=== PATIENT | female | born 1985 | race Caucasian/White ===

== ENCOUNTER 2019-10-20 13:13 | Emergency (ER) | payer SELFPAY ==
--- NOTE | ~2019-10-20 | XR_ITS ---
EXAMINATION: XR ankle LT min 3V DATE: 10/20/2019 13:38 INDICATION: Left ankle pain TECHNIQUE: Anteroposterior, lateral, mortise, and additional oblique view of the ankle were obtained. COMPARISON: None. FINDINGS: There is lateral soft tissue swelling of the ankle. Tiny heterotopic ossifications are seen distal to the lateral malleolus. Bone alignment is normal. IMPRESSION: 1. Tiny heterotopic ossifications adjacent to the lateral malleolus with adjacent soft tissue swellin g, concerning for avulsion injury of the lateral malleolus. Reviewed, dictated and finalized at location A. IMPRESSION: 1. Tiny heterotopic ossifications adjacent to the lateral malleolus with adjace nt soft tissue swelling, concerning for avulsion injury of the lateral mallefarzaneh vee
[2019-10-20 13:28] VITALS: BP 117/68; PULSE 85; RESP 18; TEMP 37.4; O2SAT 99
--- NOTE | 2019-10-20 13:51 | ED.LOWEXIN ---
HPI - Extremity Injury (Lower) General Chief Complaint: Extremity Injury, Lower Stated Complaint: Lefr foot Pain Time Seen by Provider: 10/20/19 13:47 Source: patient and RN notes reviewed Mode of arrival: ambulatory Limitations: no limitations History of Present Illness HPI Narrative: Patient presents today complaining of left ankle injury. States she twisted her ankle in a hole in the ground 1 hour prior to arrival. She has been ambulatory with increased pain. Denies numbness or tingling in the leg or foot. Currently rates her pain 6/10, which increases with weightbearing. She has tried no [id number] interventions prior to arrival. complaint: ankle injury Related Data Home Medications Medication Instructions Recorded Confirmed No Home Medications 10/20/19 10/20/19 Allergies Allergy/AdvReac Type Severity Reaction Status Date / Time No Known Allergies Allergy Mild Unverified 08/06/11 11:18 Review of Systems Review of Systems: Narrative: CONSTITUTIONAL: Denies body aches, fever, chills, or sweats. EYES: Denies visual changes, redness, or discharge. ENT: Denies rhinorrhea, congestion, sore throat, or otalgia. CARDIOVASCULAR: Denies chest pain, palpitations, or edema. RESPIRATORY: Denies cough or dyspnea. GASTROINTESTINAL: Denies abdominal pain, nausea, vomiting, or diarrhea. GENITOURINARY: Denies dysuria or hematuria. SKIN: Denies rash, itching, or wounds. MUSCULOSKELETAL: Denies back pain, or myalgia. + Left ankle injury NEUROLOGIC: Denies headache, numbness, tingling, or weakness. PSYCH: Denies depression or anxiety. PMFSH Comments At time of signature, I have reviewed and agree with nursing past medical, surgical, social and family history unless otherwise noted. Please see nursing chart for further information. There is no relevant family history pertinent to the presenting complaint Exam Narrative: Exam Narrative: GENERAL: Well-appearing, well-nourished, and in no acute distress. HEAD: Normocephalic, atraumatic. EYES: EOMI. No redness or drainage. Conjunctivae normal. ENT: Mucous membranes pink and moist. NECK: Normal AROM. CHEST: No respiratory distress. EXTREMITIES: Left ankle: Nontender medial malleolus without edema. Moderately swollen lateral malleolus with tenderness. Ecchymosis just distal to the lateral malleolus. Distal sensation intact. Capillary refill normal. Pedal pulse normal. Almost full range of motion of the ankle with increased pain. SKIN: Warm, dry, no rash. Capillary refill normal. Normal skin turgor. NEURO: No focal deficits. Alert and oriented x3. Gait steady. PSYCH: Normal affect. No signs of depression or anxiety. Course Vital Signs Vital signs: Vital Signs Temperature 99.3 F 10/20/19 13:28 Pulse Rate 85 10/20/19 13:28 Respiratory Rate 18 10/20/19 13:28 Blood Pressure 117/68 10/20/19 13:28 Pulse Oximetry 99 10/20/19 13:28 Temperature 99.3 F 10/20/19 13:28 Pulse Rate 85 10/20/19 13:28 Respiratory Rate 18 10/20/19 13:28 Blood Pressure 117/68 10/20/19 13:28 Pulse Oximetry 99 10/20/19 13:28 Reviewed Procedures Orthopedic Splinting/Casting Injury #1: Splinting/Casting Date: 10/20/19 Splinting/Casting Time: 13:57 Side: left Lower Extremity Injury Location: ankle OCL: short leg Pre-Procedure Neuro Vascular Exam: normal Post-Procedure Neuro Vascular Exam: normal Other Orthopedic Equipment: crutches Additional Comments: Placed by RN and tech MDM - Extremity Injury (Lower) Differential Diagnosis Differential diagnosis: Likely ankle sprain and strain, ankle fracture and other (Foot fracture, foot sprain) Imaging Data Radiologist's impression: ITS Impressions Ankle X-Ray 10/20/19 13:44 IMPRESSION: 1. Tiny heterotopic ossifications adjacent to the lateral malleolus with adjacent soft tissue swelling, concerning for avulsion injury of the lateral malleolus.
== END 2019-10-20 14:25 | disposition home or self-care (01) ==
PROVIDERS: Emergency Provider Nurse Practitioner
DX: S82.62XA Displaced fracture of lateral malleolus of left fibula, initial encounter for closed fracture (principal); W17.2XXA Fall into hole, initial encounter
CPT/HCPCS: 29515; 73610; 99214; G0463

== ENCOUNTER 2021-06-01 12:13 | Emergency (ER) | payer BC, SELFPAY ==
[2021-06-01 12:22] VITALS: BP 149/92; PULSE 85; RESP 16; TEMP 37.2; O2SAT 98
--- NOTE | 2021-06-01 12:25 | ED.DENTAL ---
HPI - Dental/Oral General Chief complaint: Dental/Oral Stated complaint: Tooth Pain Time Seen by Provider: 06/01/21 12:30 Source: patient, RN notes reviewed and old records reviewed Mode of arrival: ambulatory Limitations: no limitations History of Present Illness HPI Narrative: 35-year-old female presents to the [facility] with complaints of dental pain and swelling since yesterday. Pain and swelling to the lower dental gums. Multiple teeth are decayed below the gumline not warm missing. Has a history of multiple dental abscesses, trying to find a dental provider to take her insurance. No facial swelling, signs of infection. Has not seen a dentist in many years. Had taken Naprosyn this morning MD Complaint: tooth pain Related Data Allergies Allergy/AdvReac Type Severity Reaction Status Date / Time No Known Allergies Allergy Mild Verified 06/01/21 12:28 Review of Systems Review of Systems: All systems reviewed & are unremarkable except as noted in HPI and below Constitutional: Constitutional: Reports no additional constitutional complaints, Denies chills and Denies fever(s) Eyes: Eyes: Reports no additional eye complaints ENT: Reports as per HPI Comments: Dental pain lower front Cardiovascular: Cardiovascular: Reports no additional cardiovascular complaints, Denies chest pain and Denies dyspnea Respiratory: Respiratory: Reports no additional respiratory complaints, Denies cough and Denies dyspnea Musculoskeletal: Musculoskeletal: Reports no additional musculoskeletal complaints Integumentary/Breasts: Skin/Breast: Reports system reviewed and no additional complaints, except as docu Neurologic: Reports system reviewed and no additional complaints, except as documented Psychiatric: Psychiatric: Reports no additional psychiatric complaints Allergic/Immunologic: Allergic/Immunologic: Reports no additional allergic/immunologic complaints [facility] Family History Family History Mother Diabetes mellitus Social History Social History Smoking status: Current every day smoker Gender identity (if verbalized by the patient): Female Comments At the time of my signature, I reviewed and agree with the nursing past medical, surgical, social, and family history. There is no relevant family history pertinent to the patient complaint. Exam Const: General: no acute distress, alert and ill appearing chronically Nutritional Appearance: well nourished and thin Orientation/consciousness: patient oriented x3 Limitations: no limitations HENMT: Head: normal to inspection Ears: external ears normal, TM's normal bilaterally and EAC's normal General nose exam: Normal external nose present and Normal nasal mucous membranes and turbinates present Face and sinus: normal facial exam Mouth: Yes Normal oral and palatal mucosa present Teeth and gingiva: gingiva abnormal edematous, diffusely erythematous (Anterior lower gums), tender, receding and other (Multiple missing teeth, teeth that are in place have receding gingiva) and poor dentition Throat: posterior oropharynx normal, tonsils normal and uvula midline Eyes: Conjunctivae: conjunctivae normal Pupils: Equal, round and reactive pupils present Neck: Neck: normal visual inspection, no lymphadenopathy and no meningeal signs Chest: Chest palpation & inspection: normal inspection of the chest Resp: Effort & Inspection: normal respiratory effort Auscultation: clear to auscultation bilaterally Cardio: Rate: regular rate Rhythm: regular rhythm Skin: General skin exam: normal color Rashes: no rashes Wounds: no wounds Neuro: General: patient oriented x3, moves all extremities, no meningeal signs and no focal motor deficits Cranial nerves: Yes Equal, round and reactive pupils present Speech: normal speech Gait exam (Neuro): Normal gait present Extrem: General: normal to ins
== END 2021-06-01 12:38 | disposition home or self-care (01) ==
PROVIDERS: Emergency Provider Nurse Practitioner
DX: K04.7 Periapical abscess without sinus (principal); F17.200 Nicotine dependence, unspecified, uncomplicated
CPT/HCPCS: 99213; G0463

== ENCOUNTER 2021-08-01 11:30 | Emergency (ER) | payer BC, SELFPAY ==
[2021-08-01 11:56] VITALS: BP 140/94; PULSE 83; RESP 16; TEMP 36.7; O2SAT 99
--- NOTE | 2021-08-01 12:27 | ED.URI ---
HPI - URI/Sore Throat General Chief Complaint: Upper Respiratory Infection Stated Complaint: uri Time Seen by Provider: 08/01/21 12:27 Source: patient Mode of arrival: ambulatory Limitations: no limitations History of Present Illness HPI Narrative: 35-year-old female presents with complaint of sinus congestion, nasal congestion, postnasal drainage, sore throat, sinus pressure for 3 weeks. Reports that symptoms are getting worse. Is taking an [id number]-zvf-[id number] cold and flu medication without relief. States now she is blowing green drainage from her nose. Afebrile. All systems reviewed and negative except as noted above. Related Data Allergies Allergy/AdvReac Type Severity Reaction Status Date / Time No Known Allergies Allergy Mild Verified 08/01/21 12:28 Review of Systems Review of Systems: CONSTITUTIONAL: Denies fever, chills, or sweats. EYES: Denies visual changes, redness, or discharge. ENT: Reports rhinorrhea, congestion, sore throat, sinus pressure. Denies otalgia. CARDIOVASCULAR: Denies chest pain, palpitations, or edema. RESPIRATORY: Denies cough or dyspnea. GASTROINTESTINAL: Denies abdominal pain, nausea, vomiting, or diarrhea. GENITOURINARY: Denies dysuria or hematuria. SKIN: Denies rash or itching. MUSCULOSKELETAL: Denies back pain, joint pain, or myalgia. NEUROLOGIC: Denies headache, numbness, or weakness. PSYCHIATRIC: Denies anxiety or depression. All other systems reviewed are negative, except as documented in HPI. PMFSH Family History Family History Mother Diabetes mellitus Social History Social History Smoking status: Current every day smoker Gender identity (if verbalized by the patient): Female Comments At time of signature, agree with nursing past medical, surgical, social and family history. There is no relevant family history pertinent to the presenting complaint. Exam Narrative: GENERAL: This is a well-nourished, well-developed patient, in no apparent distress. HEAD: normocephalic, atraumatic. EYES: PERRL. Sclera clear/white. Vision is grossly intact. EARS: External ears normal, auditory canals clear and without drainage, fluid to bilateral TMs, no erythema or perforation. NOSE: External nose normal with clear nasal drainage, erythema and swelling to nares. Bilateral maxillary sinus tenderness. THROAT: Mucous membranes moist, posterior pharynx erythematous with clear postnasal drainage. NECK: Neck supple, non-tender without lymphadenopathy, masses or thyromegaly. CARDIOVASCULAR: Regular rate and rhythm without murmurs, gallops, or rubs. RESPIRATORY: Clear to auscultation. Breath sounds equal bilaterally. No wheezes, rales, or rhonchi. SKIN: warm, Dry, intact with no suspicious lesions or rash, good texture and turgor. NEURO: awake, alert, and oriented to person, place and time. There were no obvious focal neurologic abnormalities. EXTREMITIES: Normal range of motion to all extremities. Course Course Level of Care: Express Care Visit Vital Signs Vital signs: Vital Signs Temperature 36.7 C 08/01/21 11:56 Pulse Rate 83 08/01/21 11:56 Respiratory Rate 16 08/01/21 11:56 Blood Pressure 140/94 H 08/01/21 11:56 Pulse Oximetry 99 08/01/21 11:56 Oxygen Delivery Room Air 08/01/21 11:56 Temperature 36.7 C 08/01/21 11:56 Pulse Rate 83 08/01/21 11:56 Respiratory Rate 16 08/01/21 11:56 Blood Pressure 140/94 H 08/01/21 11:56 Pulse Oximetry 99 08/01/21 11:56 Oxygen Delivery Room Air 08/01/21 11:56 Reviewed MDM - URI/Sore Throat MDM Narrative Medical decision making narrative: Patient is aware of diagnosis, understands and agrees to treatment plan. Anticipatory guidance given. Patient agrees to follow-up as directed and is aware of reasons to seek care at the emergency department. Portions of this record may have been created with voice steve
== END 2021-08-01 12:40 | disposition home or self-care (01) ==
PROVIDERS: Emergency Provider Nurse Practitioner Family
DX: J01.90 Acute sinusitis, unspecified (principal); F17.200 Nicotine dependence, unspecified, uncomplicated; M19.90 Unspecified osteoarthritis, unspecified site
CPT/HCPCS: 99213; G0463

== ENCOUNTER 2021-12-03 13:17 | Emergency (ER) | payer OTHER, SELFPAY ==
[2021-12-03 13:34] VITALS: BP 148/104; PULSE 120; RESP 18; TEMP 38.4; O2SAT 100
--- NOTE | 2021-12-03 14:03 | ED.GENADULT ---
HPI - General Adult General Chief complaint: Dental/Oral Stated complaint: UTI/ Body Aches Time Seen by Provider: 12/03/21 14:03 Source: patient, RN notes reviewed and old records reviewed Mode of arrival: ambulatory Limitations: no limitations History of Present Illness HPI narrative: 36-year-old female presents to the [facility] with complaints of fever, body aches, ear pain, headache and felt feverish since yesterday. No treatment prior to arrival. Denies any abdominal pain or chest pain. Denies any urinary symptoms. Patient with vague symptoms of body aches. Denies vomiting. Febrile tachycardic while here. Discussed with patient going to the emergency room which she declined. States I just want an antibiotic. Related Data Allergies Allergy/AdvReac Type Severity Reaction Status Date / Time No Known Allergies Allergy Mild Verified 12/03/21 13:36 Review of Systems Review of Systems: All systems reviewed & are unremarkable except as noted in HPI and below Constitutional: Constitutional: Reports as per HPI, Reports body ache(s), Reports chills, Reports fatigue and Denies fever(s) Eyes: Eyes: Reports no additional eye complaints ENT: Reports as per HPI and Reports dental pain Cardiovascular: Cardiovascular: Reports no additional cardiovascular complaints Respiratory: Respiratory: Reports no additional respiratory complaints Gastrointestinal: Gastrointestinal: Reports no additional gastrointestinal complaints Musculoskeletal: Musculoskeletal: Reports no additional musculoskeletal complaints Integumentary/Breasts: Skin/Breast: Reports system reviewed and no additional complaints, except as docu Neurologic: Reports system reviewed and no additional complaints, except as documented Psychiatric: Psychiatric: Reports no additional psychiatric complaints Allergic/Immunologic: Allergic/Immunologic: Reports no additional allergic/immunologic complaints [facility] Family History Family History Mother Diabetes mellitus Social History Social History Smoking status: Current every day smoker Gender identity (if verbalized by the patient): Female Comments At the time of my signature, I reviewed and agree with the nursing past medical, surgical, social, and family history. There is no relevant family history pertinent to the patient complaint. Exam Const: General: no acute distress, alert and ill appearing chronically Nutritional Appearance: thin Orientation/consciousness: patient oriented x3 Limitations: no limitations HENMT: Head: normal to inspection Ears: external ears normal, TM's normal bilaterally and EAC's normal Face/Nose/Sinus: Normal external nose present and Normal nares present Face and sinus: normal facial exam Mouth: Yes Normal oral and palatal mucosa present Teeth and gingiva: gingiva abnormal diffusely erythematous and poor dentition Eyes: General: appearance normal, both eyes and all related structures Pupils: Equal, round and reactive pupils present Neck: Neck: normal visual inspection, no lymphadenopathy and no meningeal signs Chest: Chest palpation & inspection: normal inspection of the chest Resp: Effort & Inspection: normal respiratory effort and no use of accessory muscles Auscultation: clear to auscultation bilaterally, no crackles, no rales, no rhonchi and no wheezes Cardio: Rate: regular rate Rhythm: regular rhythm GI: GI Palp: Yes Soft to palpation and No Tenderness to palpation present (GI) Skin: General skin exam: normal color Rashes: no rashes Wounds: no wounds Neuro: General: patient oriented x3, moves all extremities, no meningeal signs and no focal motor deficits Cranial nerves: Yes Equal, round and reactive pupils present Speech: normal speech Gait exam (Neuro): Normal gait present Extrem: General: normal to inspection, full ROM and capillary refill normal Psyc
[2021-12-03 14:15] VITALS: TEMP 38.4
[2021-12-03] MEDS: ACETAMINOPHEN 500 MG TABLET 1000 MG PO (14:15)
[2021-12-03 15:01] VITALS: PULSE 106; TEMP 38.1
== END 2021-12-03 15:01 | disposition home or self-care (01) ==
PROVIDERS: Emergency Provider Nurse Practitioner
DX: N39.0 Urinary tract infection, site not specified (principal); Z20.822 Contact with and (suspected) exposure to COVID-19; F17.200 Nicotine dependence, unspecified, uncomplicated
CPT/HCPCS: 81003; 87086; 87088; 87426; 87804; 99213; A9270; C9803; G0463

== ENCOUNTER 2024-04-12 17:42 | Emergency (ER) | payer SELFPAY ==
--- NOTE | ~2024-04-12 | XR_ITS ---
HISTORY: pain X 3 WKS NO INJ COMPARISON: None TECHNIQUE: 3 views of the left wrist were performed. FINDINGS: No acute fracture is identified. The carpal arcs are intact. Mild radiocarpal joint space narrowing with sclerosis of the distal radius is present. The remaining visualized joint spaces are otherwise preserved. Degenerative disease is identified at the first carpal metacarpal joint space. Periarticular osteopenia is noted Bone mineralization is age-appropriate No significant soft tissue swelling is noted. No radiopaque foreign body is identified. IMPRESSION: Findings suggesting mild osteoarthritis, without acute fracture or dislocation. Reviewed, dictated and finalized at location A. IFIER OPERATOR
--- NOTE | ~2024-04-12 | XR_ITS ---
HISTORY: pain X 3 WKS NO INJ COMPARISON: None TECHNIQUE: 2 views of the left forearm were performed. FINDINGS: No acute or subacute fracture. Joint spaces are preserved and alignment is maintained. Soft tissues are unremarkable without foreign body or significant calcification. Age-appropriate mineralization. IMPRESSION: No acute fracture or dislocation Reviewed, dictated and finalized at location A. [employer]
--- OUTSIDE RECORDS SUMMARY | 2024-04-12 17:43 | XMS_ITS | Patient Health Summary ---
Author Organization [facility] Address [address] [place] [address] Care Team Providers Care Business Writer Name Role Phone Unavailable Primary Care Provider Unavailabl e Note from [facility],non-owned Affiliates and Associated Physician Practices is amultiple site organization consisting of ambulatory clinics and hospital sitesin [place], [place], [place] and [place]. This disclosure is being madepursuant to the Care Everywhere program and may not contain all information available regarding this patient. Last updated 17.[facility] [email or web address] Social History Tobacco Use Types Packs/Day Years Used Date Smoking Tobacco: Never Assessed Sex and Gender Information Value Date Recorded Sex Assigned at Not on file Gender Identity Not on file Sexual Orientation Not on file Procedures * GROSS + MICRO EXAM(Performed 06/06/2004) Results * GROSS + MICRO EXAM (06/06/2004 6:58 PM CDT) Result CASE NUMBER [id number] Comment: ORDERING PHYSICIAN MICHELE LIZ SPECIMEN TYPE Placenta Date 06/08/2004 Physician Cruz Liz Gross Description The specimen consists of a discoid placenta weighing 450 grams, and measures 15 cm in maximum transverse dimension and 2 cm in thickness. A small stump of umbilical cord is attached slightly eccentric, about 3 cm from the one margin of the placenta. It measures 13 cm in length and 7 mm in transverse dimension. The membranes are thin and translucent. The surface has prominent blood vessels. The cut surface of the umbilical cord has three prominent blood vessels. The maternal surface is congested pinkish cotyledons with a few blood clots attached. Two small yellowish lobular areas are noted. The cut surface shows a hematoma. Sections from the umbilical cord and membranes are submitted in block A, sections from the surface are submitted in B, and sections from the maternal surface are submitted in C. RN sorto Microscopic Exam The chorioamniotic membrane show no evidence of inflammation or meconium. The umbilical cord contains three vascular channels and shows no evidence of funisitis or thrombosis. The chorionic villi are very small, some of which contain only one vessel with little surrounding cytoplasm and show increased numbers of syncytial knots. Infarction with ghost outlines of chorionic villi is noted. There is no evidence of villitis or acute atherosis. An intervillous thrombus is noted. GM/na Diagnosis I. Placenta -- Third trimester placenta, 450 grams -- Features of accelerated maturation -- Two infarcts identified -- Intervillous thrombus -- Three vessel umbilical cord with no pathologic changes -- Chorioamniotic membranes with no pathologic changes GM/na Commissary Worker na Pathologist Tammy Reardon M.D. [place]. 06/09/2004 1258 <1> CPT code 46517 MISCELLANEOUS SAMPLES / Unknown 06/06/2004 6:58 PM CDT 06/08/2004 7:14 AM CDT Historical Provider LAB - PATHOLOGY/C YTOLOGY ORDERABLES
--- OUTSIDE RECORDS SUMMARY | 2024-04-12 17:43 | XMS_ITS | Clinical Summary ---
Author Organization [email or web address] Address [address] [place] [address] Care Team Providers Care Motor Vehicle License Clerk Name Role Phone Unavailable Primary Care Provider Unavailabl e Source Comments [email or web address],non-owned Affiliates and Associated Physician Practices is amultiple site organization consisting of ambulatory clinics and hospital sitesin [place], [place], [place] and [place]. This disclosure is being madepursuant to the Care Everywhere program and may not contain all information available regarding this patient. Last updated 17.[email or web address] Social History Tobacco Use Types Packs/Day Years Used Date Smoking Tobacco: Never Assessed Sex and Gender Information Value Date Recorded Sex Assigned at Not on file Gender Identity Not on file Sexual Orientation Not on file Plan of Treatment Health Maintenance Due Date Last Done Comments PAP SMEAR 1986 HIV SCREENING 2001 HEPATITIS C SCREENING 10/18/2004 DTAP/TDAP/TD VACCINES (1 - Tdap) 2005 HEPATITIS B VACCINE (1 of 3 - 19+ 3-dose series) 2005 COVID-19 VACCINE ( - 2023-2 5 season) 2023 INFLUENZA VACCINE (#1) 2023 DEPRESSION SCREENING 02/29/2024 ZOSTER VACCINE (1 of 2) 2036 HIB VACCINE Aged Out No longer eligi ble based on patient's age to complete this topic HPV VACCINE Aged Out No longer eligi ble based on patient's age to complete this topic MENINGOCOCCAL (Group B) VACCINE Aged Out No longer eligible based on patient's age to complete this topic MENINGOCOCCAL VACCINE Aged Out No maura valeriy eligible based on patient's age to complete this topic PNEUMOCOCCAL VACCINE Aged Out No long er eligible based on patient's age to complete this topic
--- OUTSIDE RECORDS SUMMARY | 2024-04-12 17:43 | XMS_ITS | Referral Summary ---
Author Organization [facility] Address [address] [place] [address] Care Team Providers Care Clinic Administrator Name Role Phone Unavailable Primary Care Provider Unavailabl e Source Comments [facility],non-owned Affiliates and Associated Physician Practices is amultiple site organization consisting of ambulatory clinics and hospital sitesin [place], [place], [place] and [place]. This disclosure is being madepursuant to the Care Everywhere program and may not contain all information available regarding this patient. Last updated 17.[facility] Social History Tobacco Use Types Packs/Day Years Used Date Smoking Tobacco: Never Assessed Sex and Gender Information Value Date Recorded Sex Assigned at Not on file Gender Identity Not on file Sexual Orientation Not on file Plan of Treatment Not on file
--- OUTSIDE RECORDS SUMMARY | 2024-04-12 17:43 | XMS_ITS | Continuity of Care Document ---
Author Organization [facility] Address [address] [place] [address] [address] [place] [address] Phone Care Team Providers Care Hardware Engineering Manager Name Role Phone Will BROWN, Rosaline Unavailable Unavailable Advance Directives Directive Yes / No Effective Date File Name No Information Encounters Encounter Description Practice Location Reason(s) For Visit Diagnoses Date Provider Providers Copied on Encounter [facility], [address] [place], [place] [address], [place], [place], [id number], [place] tel:[phone] [facility] No Information 4 Will Waggoner. [address] [place] [address] [address], [place], [place], [id number] , [place]. tel:[phone] Family History Family Member Type Diagnosis Age At Onset No Information Payers Payer name Insurance type Covered alliance party ID Authoriza tion(s) No Information Social History Type Description Quantity Date Captured Comments Sex Female Smoking Status No Information Chief Complaint And Reason For Visit No Information Reason For Referral Reason For Referral No Information History Of Present Illness Encounter Date Complaint History Of Prese nt Illness No Information Functional Status Date Functional Assessmen t No Information Instructions Date Instruction Additional Infor mation No Information Assessments Type Assessment Date No Information Patient Care Teams Name Effective Dates (start - stop) Status Members No Information
[2024-04-12 17:53] VITALS: BP 168/105; PULSE 94; RESP 18; TEMP 36.4; O2SAT 100
--- NOTE | 2024-04-12 18:34 | ED_ITS ---
HPI - General Adult General Chief complaint: Extremity Injury, Upper <Danika Zhou June, BACTERIOLOGY TEACHER - Last Filed: 04/12/24 18:38> Stated complaint: L ARM INJURY <Danika Zhou June, BACTERIOLOGY TEACHER - Last Filed: 04/12/24 18:38> Time Seen by Provider: 04/12/24 18:34 <Danika Zhou June, BACTERIOLOGY TEACHER - Last Filed: 04/12/24 18:38> Focused HPI: Lubna Beckham is a 38 y/o female who presents today with complaints of having pain to her left forearm for two weeks. She states that she does alot of repetitive movements at work and its causing her more pain. She denies any known trauma or injury + swelling to forearm / Pulses intact GENERAL: well-nourished, and in no acute distress. HEAD: Normocephalic, atraumatic. CHEST: Clear to auscultation. ?No respiratory distress. HEART: Regular rate and rhythm.? NEURO: ?Alert and oriented x3. Patient screened in triage and initial orders placed.? ?Additional care and disposition to be based upon?diagnostic testing and treatment. <Danika Zhou June,N - Last Filed: 04/12/24 18:38> History of Present Illness HPI narrative: Agree with the HPI above. Patient has tried lypv-bjp-rkuwuxz medications as well as a brace she bought online without any significantly for symptoms. Has had similar events in her right forearm but predominantly in her left forearm is what is bothering her today. Thinks is from the repetitive motions and activity at work. <Aldo Banda MD - Last Filed: 04/12/24 20:38> Related Data Allergies/adverse reactions: Allergies Allergy/AdvReac Type Severity Reaction Status Date / Time No Known Allergies Allergy Mild Verified 04/12/24 17:42 <Danika Zhou June, BACTERIOLOGY TEACHER - Last Filed: 04/12/24 18:38> Review of Systems Review of Systems: As reviewed above in HPI <Aldo Banda MD - Last Filed: 04/12/24 20:38> PMFSH Family History Family History: Family History Mother Diabetes mellitus <Danika Zhou June, BACTERIOLOGY TEACHER - Last Filed: 04/12/24 18:38> Social History Social History: Social History Smoking status: Current every day smoker Living arrangements: with family Occupation/Education: unemployed Gender identity (if verbalized by the patient): Female <Danika Yi, BACTERIOLOGY TEACHER - Last Filed: 04/12/24 18:38> Exam Narrative: GENERAL: [Well-appearing, well-nourished, and in no acute distress.] HEAD: [Normocephalic, atraumatic.] EYES: [PERRLA and EOMI.] ENT: Nares clear, no rhinorrhea or epistaxis. Mucous membranes moist. NECK: Supple. CHEST: [Clear to auscultation. No respiratory distress.] HEART: [Regular rate and rhythm]. No murmur heard. 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 No tenderness over the bony prominences. No discoloration over the skin, no swelling or any tenderness proximal to the forearms. Seems to be symmetric in both arms the patient states her left side is hurting SKIN: Warm, dry, no rash. NEURO: [No focal deficits]. Alert and oriented [x3.] PSYCH: [Normal mood and affect.] <Aldo Banda MD - Last Filed: 04/12/24 20:38> Course Vital Signs Vital signs: Vital Signs Temperature 36.4 C 04/12/24 17:53 Pulse Rate 94 04/12/24 17:53 Respiratory Rate 18 04/12/24 17:53 Blood Pressure 168/105 H 04/12/24 17:53 Pulse Oximetry 100 04/12/24 17:53 Oxygen Delivery Room Air 04/12/24 17:53 Temperature 36.4 C 04/12/24 17:53 Pulse Rate 94 04/12/24 17:53 Respiratory Rate 18 04/12/24 17:53 Blood Pressure 168/105 H 02/13/25 17:53 Pulse Oximetry 100 04/12/24 17:53 Oxygen Delivery Room Air 04/12/24 17:53 <Danika Yi APRN - Last Filed: 04/12/24 18:38> Vital Signs Temperature 36.4 C 04/12/24 17:53 Pulse Rate 94 04/12/24 17:53 Respiratory Rate 18 04/12/24 17:53 Blood Pressure 168/105 H 04/12/24 17:53 Pulse Oximetry 100 04/12/24 17:53 Oxygen Delivery Room Air 04/12/24 17:53 Temperature 36.4 C 04/12/24 17:53 Pulse Rate 94 04/12/24 17:53 Respiratory Rate 18 04/12/24 17:53 Blood Pressure 168/105 H 04/12/24 17:53 Pulse Oximetry 100 04/12/24 17:53 Oxygen Delivery Room Air 04/12/24 17:53 <Aldo Banda MD - Last Filed: 04/12/24 20:38> Medical Decision Making MDM Narrative Medical decision making narrative: 38-year-old female presenting to the emergency department for left forearm pain. 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 Seems to be symmetric in both arms but her left side is was bothering her today. Has tried Augustine wraps ihsq-bbs-fnnsetv meds without control. No elbow pain or tenderness, no symptoms in the hand. 2+ pulses. Patient likely has pronator syndrome versus tennis elbow based on the symptomatology. Low suspicion acute bony abnormality or any compartment pressure elevations based on the clinical exam findings and history. X-rays were obtained of the left wrist and forearm as well as providing her ibuprofen and Tylenol. X-rays show some mild arthritis but no acute osseous process otherwise. Patient will be safe for discharge home with diagnosis of pronator syndrome instructed follow-up with regular doctor. Provider short course of steroids for inflammation control in addition to her current regimen. Encouraged compression and brace for comfort and to limit activities at work for which a work note was provided. <Aldo Banda MD - Last Filed: 04/12/24 20:38> Medical Records Medical records reviewed: Yes I reviewed the external patient's medical records. <Aldo Banda MD - Last Filed: 04/12/24 20:38> Vital Signs Vital Signs: Vital Signs Temperature 36.4 C 04/12/24 17:53 Pulse Rate 94 04/12/24 17:53 Respiratory Rate 18 04/12/24 17:53 Blood Pressure 168/105 H 04/12/24 17:53 Pulse Oximetry 100 04/12/24 17:53 Oxygen Delivery Room Air 04/12/24 17:53 Temperature 36.4 C 04/12/24 17:53 Pulse Rate 94 04/12/24 17:53 Respiratory Rate 18 04/12/24 17:53 Blood Pressure 168/105 H 04/12/24 17:53 Pulse Oximetry 100 04/12/24 17:53 Oxygen Delivery Room Air 04/12/24 17:53 <Danika Yi APRN - Last Filed: 04/12/24 18:38> Vital Signs Temperature 36.4 C 04/12/24 17:53 Pulse Rate 94 04/12/24 17:53 Respiratory Rate 18 04/12/24 17:53 Blood Pressure 168/105 H 04/12/24 17:53 Pulse Oximetry 100 04/12/24 17:53 Oxygen Delivery Room Air 04/12/24 17:53 Temperature 36.4 C 04/12/24 17:53 Pulse Rate 94 04/12/24 17:53 Respiratory Rate 18 04/12/24 17:53 Blood Pressure 168/105 H 04/12/24 17:53 Pulse Oximetry 100 04/12/24 17:53 Oxygen Delivery Room Air 04/12/24 17:53 <Aldo Banda MD - Last Filed: 04/12/24 20:38> Imaging Data Attestation: I personally reviewed and interpreted this imaging study as follows: <Aldo Banda MD - Last Filed: 04/12/24 20:38> My impression: Impressions Forearm X-Ray 04/12/24 19:10 IMPRESSION: No acute fracture or dislocation Wrist X-Ray 04/12/24 19:16 IMPRESSION: Findings suggesting mild osteoarthritis, without acute fracture or dislocation. <Aldo Banda MD - Last Filed: 04/12/24 20:38> Discharge Plan Discharge Clinical Impression: Pronator syndrome of left upper extremity, Forearm pain, Repetitive motion disorder of left forearm <Danika Zhou June, - Last Filed: 04/12/24 18:38> Patient Disposition: Home, Self-Care <Danika Zhou June, - Last Filed: 04/12/24 18:38> Condition: Stable <Danika Zhou June, - Last Filed: 04/12/24 18:38> Instructions: Antibiotic Form <Danika Zhou June, Filed: 04/12/24 18:38> Additional Instructions: Your symptoms are very consistent with pronator syndrome versus tennis elbow. We will send you home with a short course of steroids as you have already tried ycrf-fvm-hmnhnra regimen without any significant relief. Limit the activities that are causing her symptoms with repetitive movement of your forearm and rotation of her wrist obtain a brace over the Internet or your local pharmacy. Follow-up with regular doctor. <Danika Zhou June, - Last Filed: 04/12/24 18:38> Patient Language: Cymraes <Danika Zhou June, - Last Filed: 04/12/24 18:38> Prescriptions: New methylprednisolone [Medrol (Brigido)] 4 mg tablets,dose pack See Rx Instructions .ROUTE .COMPLEX Qty: 21 0RF Rx Instructions: orally per package directions No Action amoxicillin-pot clavulanate 875-125 mg tablet 1 tablet PO Q12H Qty: 20 0RF <Danika CruzCurtis June, - Last Filed: 04/12/24 18:38> Follow-up/Referrals: PHYSICIAN,APPLICATION SUPPORT LEAD [Primary Care Provider] - <Danika CruzCurtis June, Last Filed: 04/12/24 18:38> Stand Alone Forms: Work/School Release IP <Danika CruzCurtis June, - Last Filed: 04/12/24 18:38> Time of Disposition: 20:38 <Danika Zhou June, - Last Filed: 04/12/24 18:38> 20:38 <Aldo Banda MD - Last Filed: 04/12/24 20:38>
[2024-04-12] MEDS: ACETAMINOPHEN 500 MG TABLET 1000 MG PO (20:21)
[2024-04-12] MEDS: IBUPROFEN 600 MG TABLET PO (20:21)
--- OUTSIDE RECORDS SUMMARY | 2024-04-12 20:35 | XMS_ITS | Clinical Summary ---
Author Organization [facility] [employer] Address [address] [place] [address] Care Team Providers Care Mold Changer Name Role Phone Unavailable Primary Care Provider Unavailabl e Source Comments [facility] [employer],non-owned Affiliates and Associated Physician Practices is amultiple site organization consisting of ambulatory clinics and hospital sitesin [place], [place], [place] and [place]. This disclosure is being madepursuant to the Care Everywhere program and may not contain all information available regarding this patient. Last updated 17.[facility] [employer] Social History Tobacco Use Types Packs/Day Years [...]
--- OUTSIDE RECORDS SUMMARY | 2024-04-12 20:35 | XMS_ITS | Referral Summary ---
Author Organization [facility] Address [address] [place] [address] Care Team Providers Care Trade Recruiter Name Role Phone Unavailable Primary Care Provider Unavailabl e Source Comments [facility],non-owned Affiliates and Associated Physician Practices is amultiple site organization consisting of ambulatory clinics and hospital sitesin [place], [place], [place] and [place]. This disclosure is being madepursuant to the Care Everywhere program and may not contain all information available regarding this patient. Last updated 17.[facility] [employer] Social History Tobacco Use Types Packs/Day Years Used Date Smoking Tobacco: Never Assessed Sex and Gender Information Value Date Recorded Sex Assigned at Not on file Gender Identity Not on file Sexual Orientation Not on file Plan of Treatment Not on file
--- OUTSIDE RECORDS SUMMARY | 2024-04-12 20:35 | XMS_ITS | Continuity of Care Document ---
Author Organization [facility] Address [address] [place] [address] [address] [place] [address] Phone Care Team Providers Care Induction Brazer Name Role Phone Will BROWN, Rosaline Unavailable Unavailable Advance Directives Directive Yes / No Effective Date File Name No Information Encounters Encounter Description Practice Location Reason(s) For Visit Diagnoses Date Provider Providers Copied on Encounter [facility], [address] [place], [place] [address], [place], [place], [id number], [place] tel:[phone] [facility] No Information 4 Will Waggoner. [address] [place] [address] [address], [place], [place], [id number] , [place]. tel:[phone] Family History Family Member Type Diagnosis Age At Onset No Information Payers Payer name Insurance type Covered democrat ID Authoriza tion(s) No Information Social History [...]
--- OUTSIDE RECORDS SUMMARY | 2024-04-12 20:35 | XMS_ITS | Patient Health Summary ---
Author Organization [facility] Address [address] [place] [address] Care Team Providers Care Funeral Car Driver Name Role Phone Unavailable Primary Care Provider Unavailabl e Note from [facility],non-owned Affiliates and Associated Physician Practices is amultiple site organization consisting of ambulatory clinics and hospital sitesin [place], [place], [place] and [place]. This disclosure is being madepursuant to the Care Everywhere program and may not contain all information available regarding this patient. 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 [place]. 06/09/2004 1258 <1> CPT code 65959 MISCELLANEOUS SAMPLES / Unknown 06/06/2004 6:58 PM CDT 06/08/2004 7:14 AM CDT Historical Provider LAB - PATHOLOGY/C YTOLOGY ORDERABLES
[2024-04-12 21:11] VITALS: BP 156/80; PULSE 88; RESP 15; O2SAT 98
== END 2024-04-12 21:12 | disposition home or self-care (01) ==
PROVIDERS: Emergency Provider Student in an Organized Health Care Education/Training Program
DX: G56.12 Other lesions of median nerve, left upper limb (principal); F17.200 Nicotine dependence, unspecified, uncomplicated; X50.3XXA Overexertion from repetitive movements, initial encounter
CPT/HCPCS: 73090; 73110; 99283; A9270

== ENCOUNTER 2024-10-13 01:22 | Emergency (ER) | payer OTHER, SELFPAY ==
--- OUTSIDE RECORDS SUMMARY | 2024-10-13 01:24 | XMS_ITS | Clinical Summary ---
Author Organization [facility] [employer] Address [address] [place] [address] Care Team Providers Care Vp Outcomes Name Role Phone Unavailable Primary Care Provider Unavailabl e Source Comments [facility] [employer],non-owned Affiliates and Associated Physician Practices is amultiple site organization consisting of ambulatory clinics and hospital sitesin [place], [place], [place] and [place]. This disclosure is being madepursuant to the Care Everywhere program and may not contain all information available regarding this patient. Last updated 17.[facility] [employer] Social History Tobacco Use Types Packs/Day Years Used Date Smoking Tobacco: Never Assessed Comments Unknown Sex and Gender Information Value Date Recorded Sex Assigned at Not on file Legal Sex Female 6:28 AM BAT PERSON Gender Identity Not on file Sexual Orientation Not on file Plan of Treatment Health Maintenance Due Date Last Done Comments HIV SCREENING 2001 HEPATITIS C SCREENING 10/18/2004 DTAP/TDAP/TD VACCINES (1 - Tdap) 2005 HEPATITIS B VACCINE (1 of 3 - 19+ 3-dose series) 2005 HPV VACCINE (1 - 3-dose SCDM series) 2013 COVID-19 VACCINE (1 - 2023-2 5 season) 2023 DEPRESSION SCREENING 02/29/2024 INFLUENZA VACCINE (#1) 2024 ZOSTER VACCINE (1 of 2) 2036 HIB VACCINE Aged Out No longer eligi ble based on patient's age to complete this topic MENINGOCOCCAL (Group B) VACC INE SHARED DECISION-MAKING Aged Out No longer eligibl e based on patient's age to complete this topic MENINGOCOCCAL GROUPS A/C/Y/W VACCINE Aged Out No longer eligible b ased on patient's age to complete this topic PNEUMOCOCCAL VACCINE Aged Out No long er eligible based on patient's age to complete this topic
--- OUTSIDE RECORDS SUMMARY | 2024-10-13 01:24 | XMS_ITS | Continuity of Care Document ---
Author Organization [facility] Address [address] [place] [address] [address] [place] [address] Phone Care Team Providers Care Clinical Interviewer Name Role Phone Will BROWN, Rosaline Unavailable Unavailable Advance Directives Directive Yes / No Effective Date File Name No Information Encounters Encounter Description Practice Location Reason(s) For Visit Diagnoses Date Provider Providers Copied on Encounter [facility], [address] [place], [place] [address], [place], [place], [id number], [place] tel:[phone] [facility] No Information 4 Will Waggoner. [address] [place] [address] [address], [place], [place], [id number] , [place]. tel:[phone] Family History Family Member Type Diagnosis Age At Onset No Information Payers Payer name Insurance type Covered republican ID Authoriza tion(s) No Information Social History [...]
--- OUTSIDE RECORDS SUMMARY | 2024-10-13 01:24 | XMS_ITS | Continuity of Care Document ---
Author Organization [facility] Address [address] [place] [address] Phone Care Team Providers Care Sap Bpc Architect Name Role Phone Sarah BROWN, Iwona Unavailable Unavailable Allergies, Adverse Reactions, Alerts Substance Reaction Status Criticality onion throat swelling Active No Informati on latex Hives / Skin Rash Active No Informa tion morphine Anaphylaxis Active No Information Medications Medication Instructions Dosage Effective Dates (start - stop) Status Comments tramadol 50 mg tablet take 1 tablet by o ral route every 6 hours as needed 50 MG - Active megestrol 20 mg tablet take 1 tablet by oral route 2 times every day 20 MG - Active Procedures Procedure Date IMMUNIZATION ADMIN FLU VAC NO PRSV 4 GUANACO 3 YRS+ Brief Emotional/behavioral Assessment Ju OFFICE/OUTPATIENT VISIT, EST Brief Emotional/behavioral Assessment Fe PREV VISIT, EST, AGE 18-39 Brief Emotional/behavioral Assessment Ja OFFICE/OUTPATIENT VISIT, NEW Advance Directives Directive Yes / No Effective Date File Name No Information Encounters Encounter Description Practice Location Reason(s) For Visit Diagnoses Date Provider Providers [facility] on [facility] [address] [place], [address], [place] tel:[phone] [facility] No Information 1 Sarah Bustillo. [address], [place], [id number], [place]. tel:[phone] [facility]aj [facility], [address] [place], [address], [place] tel:[phone] [facility] No Information 0 Kincaid Tere. [address] [place], [id number], [place]. tel:[phone] OFFICE/OUTPA TIENT VISIT, [facility], [address] [place] [address], [facility], [place] tel:[phone] [facility] Abnormal bleeding (chief complaint) Body mass index (BMI) 50-59.9 , adultEncounter for screening for depressionAbnorm al vaginal bleeding 0 Kincaid Tere. [address] [place], [id number], [place]. [phone] PREV VISIT, EST, AGE 18-39 [facility], [address] [place] [address], [facility], tel:[phone] [facility] Preventive exam (chief complaint) Encntr for general adult medical exam w/o abnormal findingsEncounte r for screening for depressionBody mass index (BMI) 50-59.9 , adultBRBPR (bright red blood per rectum) 0 Kincaid Tere. [address] [place], [id number], [place]. tel:[phone] OFFICE/OUTPA TIENT VISIT, [facility], [address] [place] [address], [facility], [place] tel:[phone] [facility] Establish Care (chief complaint)E arache (chief complaint)R ectal bleeding (chief complaint) Encounter to establish careEncounter for screening for depressionBody mass index (BMI) 50-59.9 , adultBRBPR (bright red blood per rectum)Dysfuncti on of both eustachian tubes 0 Kincaid Tere. [address] [place], [id number], [place]. [phone] Family History Family Member Type Diagnosis Age At Onset Sister Problem (finding) Endometriosis Paternal grandmother Problem (finding) malignant neoplasm of breast in first degree relative (Cause Of ) Father Problem (finding) alcoholism Mother Problem (finding) Mental illness Mother Problem (finding) malignant neoplasm of t hyroid Mother Problem (finding) hypertension Father Problem (finding) Renal disease Father Problem (finding) hypertension Mother Problem (finding) fibromyalgia Mother Problem (finding) malignant neoplasm of u terus Mother Problem (finding) Diabetes mellitus Immunizations Vaccine Date Status Comments Influenza, injectable, quadrivalent, preservative free, 3 yrs or older administered Note: GIVEN CAD RMA ; Source: New Immunization Record Payers Payer name Insurance type Covered constitution party ID Authoriza tibrittany(s) Medicaid [facility] [id number] Social History Type Description Quantity Date Captured Comments Alcohol Use Details Unknown Caffeine Use Details Unknown Tobacco Use Status No Information Smoking Status No Information Sex Female Chief Complaint And Reason For Visit No Information Reason For Referral Reason For Referral No Information Plan Of Treatment Date Type Action Status Goal Dietary manageme nt education, guidance, and counseling completed Goal Dietary manageme nt education, guidance, and counseling completed Goal Dietary manageme nt education, guidance, and counseling completed Referral Ordered: Referrals: Colon and Rectal Surgery. Evaluate and treat ordered Patient Education Well Visit, Ages 18 to 50: After Your~ completed Future Order: Lab Order CBC (INC LUDES DIFF/PLT) ([id number]), Sent on: Sent History Of Present Illness Encounter Date Complaint History Of Prese nt Illness Abnormal bleeding Location/sourc e of the bleeding is uterine. The problem is no change. Denies aggravating factors. Associated symptoms include cramps and pelvic pain. Pertinent negatives include dizziness, dyspnea, fatigue and headache. Additional information: D&C completed 08/09 w/Ob-Upholstery Estimator; had f/u appt for continued bleeding. Recommended pt have partial hysterectomy. Preventive exam The patient stat es she uses abstinence for control. Her menses is irregular with normal flow with a frequency of >28 days. Negative for: breast discharge, breast lump(s) and breast pain. Positive for: breast self exam. Menopausal symptoms negative for: hot flashes, insomnia, night sweats and vaginal dryness. Pertinent negatives include anxiety, depression, difficulty falling sleep, sexual dysfunction, urinary urgency and vaginal discharge. She does not take calcium. She does not take Vitamin D. She does take multivitamins occasionally. She does not take Folic acid. She does drink alcohol. Establish Care Lubna is here t o establish care with a new provider & office. She was last seen by a primary care provider approximately 5 - 6 months ago. Last physical 8 months ago; pap 2 years ago. Family, medical & surgical history reviewed as well as daily medications. Current health concerns are ear symptoms. No recent illness, fevers, hospitalizations, UC or ER visits. KASIA completed for previous records. Earache The states the e arache is in both ears. It occurs daily. The problem is with no change. Denies aggravating factors. Denies relieving factors. Associated symptoms include ear popping, ear pressure and fullness in ears. Pertinent negatives include dizziness. Rectal bleeding Duration 5 Years . Quality: BRBPR w/out bowel movement. It occurs randomly. Associated symptoms include constipation and diarrhea. Pertinent negatives include abdominal distention, abdominal pain, change in bowel habits, heartburn, nausea, perirectal itching, rectal pain, rectal pain associated with bleeding and weight loss. Functional Status Date Functional Assessmen t No Information Instructions Date Instruction Additional Infor julio cesar Have labs drawn at [facility]. We will notify you of any abnormal results. Follow up with Ob-Upholstery Estimator as scheduled. Related to Abnormal vaginal bleeding Avoid junk foods, fa st foods and highly sugared drinks such as soda pop Related to Body mass index (BMI) 50-59.9 , adult Regular walking, bik ing, swimming as tolerated is recommended as exercise Related to Body mass index (BMI) 50-59.9 , adult Continue current treatment plan Related to Encounter for screening for depression There is no depressi on and treatment is not needed Related to Encounter for screening for depression Dietary management e ducation, guidance, and counseling Related to Body mass index (BMI) 50.0-59.9, adult Call the GI office t o schedule an appointment. Related to BRBPR (bright red blood per rectum) See included informa tion. Have labs drawn today. We will notify you of any abnormal results. Related to Encntr for general adult medical exam w/o abnormal findings Continue current treatment plan Related to Encounter for screening for depression There is no depressi on and treatment is not needed Related to Encounter for screening for depression Avoid junk foods, fa st foods and highly sugared drinks such as soda pop Related to Body mass index (BMI) 50-59.9 , adult Regular walking, bik ing, swimming as tolerated is recommended as exercise Related to Body mass index (BMI) 50-59.9 , adult Dietary management e ducation, guidance, and counseling Related to Body mass index (BMI) 50-59.9, adult Purchase Fluticasone (Flonase) and use 2 sprays twice daily for 2 weeks. Then decrease to once daily after 2 weeks. If no improvement, follow up. Related to Dysfunction of both eustachian tubes You were referred to ColoRectal Surgery. They will call you to set up an appointment. Please make sure your voicemail is not full on your phone & that you return any missed calls from their office. Related to BRBPR (bright red blood per rectum) Welcome to [facility]If needed, behavioral health services can be scheduled with the front desk host. We have an in-office lab for blood work. They are open Tuesday - 8am - 4pm & Tuesday 8am - 12pm.We also have an in-office Event Crew Technician who is here on Wednesdays. Appointments can also be made with the front desk host. Related to Encounter to establish care Avoid junk foods, fa st foods and highly sugared drinks such as soda pop Related to Body mass index (BMI) 50-59.9 , adult There is no depressi on and treatment is not needed Related to Encounter for screening for depression Continue current treatment plan Related to Encounter for screening for depression Dietary management e ducation, guidance, and counseling Related to Body mass index (BMI) 50-59.9, adult Regular walking, bik ing, swimming as tolerated is recommended as exercise Related to Body mass index (BMI) 50-59.9 , adult Assessments Type Assessment Date No Information Patient Care Teams Name Effective Dates (start - stop) Status Members No Information
--- OUTSIDE RECORDS SUMMARY | 2024-10-13 01:45 | XMS_ITS | Continuity of Care Document ---
Author Organization [facility] Address [address] [place] [address] Phone Care Team Providers Care Incinerator Plant Supervisor Name Role Phone Sarah BROWN, Iwona Unavailable [...] Diagnoses Date Provider Providers Copied on [facility]counter [facility] [address] [place], [address], [place] tel:[phone] [facility] No Information 1 Sarah Bustillo. [address], [place], [id number], [place]. tel:[phone] [facility]araj [facility], [address] [place], [address], [place] tel:[phone] [facility] No Information 0 Kincaid Tere. [address] [place], [id number], [place]. tel:[phone] OFFICE/OUTPA TIENT VISIT, [facility], [address] [place] [address], [facility], [place] tel:[phone] [facility] Telehealth Abnormal bleeding (chief complaint) Body mass index (BMI) 50-59.9 , adultEncounter for screening for depressionAbnorm al vaginal bleeding 0 Kincaid Tere. [address] [place], [id number], [place]. [phone] PREV VISIT, EST, AGE 18-39 [facility], [address] [place] [address], [facility], tel:[phone] [facility] Preventive exam (chief complaint) Encntr for general adult medical exam w/o abnormal findingsEncounte r for screening for depressionBody mass index (BMI) 50-59.9 , adultBRBPR (bright red blood per rectum) 0 Kincaid Tere. [address], [id number], [place]. tel:[phone] OFFICE/OUTPA TIENT VISIT, [facility], [address] [place] [address], [facility], [place] tel:[phone] [facility] Establish Care (chief complaint)E arache (chief complaint)R ectal bleeding (chief complaint) Encounter to establish careEncounter for screening for depressionBody mass index (BMI) 50-59.9 , adultBRBPR (bright red blood per rectum)Dysfuncti on of both eustachian tubes 0 Kincaid Tere. [address] [place], [id number], [place]. [phone] Family History Family Member Type Diagnosis Age [...] Covered constitution party ID Authoriza tibrittany(s) Medicaid [facility] [id number] Social History Type Description Quantity Date Captured [...] and headache. Additional information: D&C completed 08/09 w/Ob-Informatics Pharmacist; had f/u appt for continued bleeding. Recommended [...] Infor julio cesar Have labs drawn at [facility]. We will notify you of any abnormal results. Follow up with Ob-Informatics Pharmacist as scheduled. Related to Abnormal vaginal bleeding There is no depressi on and treatment is not needed Related to Encounter for screening for depression Continue current treatment plan Related to Encounter for screening for depression Regular walking, bik ing, swimming as tolerated is recommended as exercise Related to Body mass index (BMI) 50-59.9 , adult Avoid junk foods, fa st foods and [...] general adult medical exam w/o abnormal findings Dietary management e ducation, guidance, and counseling Related to Body mass index (BMI) 50-59.9, adult Regular walking, bik ing, swimming as tolerated is recommended as exercise Related to Body mass index (BMI) 50-59.9 , adult Avoid junk foods, fa st foods and highly sugared drinks such as soda pop Related to Body mass index (BMI) 50-59.9 , adult There is no depressi on and treatment is not needed Related to Encounter for screening for depression Continue current treatment plan Related to Encounter for screening for depression Purchase Fluticasone (Flonase) and use 2 sprays [...] health services can be scheduled with the medical front desk specialist. We have an in-office lab for blood work. They are open Tuesday - 8am - 4pm & Tuesday 8am - 12pm.We also have an in-office Geriatric Assistant who is here on Wednesdays. Appointments can also be made with the medical front desk specialist. Related to Encounter to establish care Dietary management e ducation, guidance, and counseling Related to Body mass index (BMI) 50-59.9, adult Regular walking, bik ing, swimming as tolerated is recommended as exercise Related to Body mass index (BMI) 50-59.9 , adult Avoid junk foods, fa st foods and highly sugared drinks such as soda pop Related to Body mass index (BMI) 50-59.9 , adult There is no depressi on and treatment is not needed Related to Encounter for screening for depression Continue current treatment plan Related to Encounter for screening for depression Assessments Type Assessment Date No Information Patient Care Teams Name Effective Dates (start - stop) Status Members No Information
--- OUTSIDE RECORDS SUMMARY | 2024-10-13 01:45 | XMS_ITS | Continuity of Care Document ---
Author Organization [facility] Address [address] [place] [address] [address] [place] [address] Phone Care Team Providers Care Logistics Management Specialist Name Role Phone Will BROWN, Rosaline Unavailable Unavailable Advance Directives Directive Yes / No Effective Date File Name No Information Encounters Encounter Description Practice Location Reason(s) For Visit Diagnoses Date Provider Providers Copied on Encounter [facility], [address] [place], [place] [address], [place], [place], [id number], [place] tel:[phone] [facility] No Information 4 Will Waggoner. [address] [place] [address] [address], [place], [place], [id number] , [place]. tel:[phone] Family History Family Member Type Diagnosis Age [...]
--- OUTSIDE RECORDS SUMMARY | 2024-10-13 01:45 | XMS_ITS | Clinical Summary ---
Author Organization [facility] Address [address] [place] [address] Care Team Providers Care Cogeneration Technician Name Role Phone Unavailable Primary Care Provider Unavailabl e Source Comments [facility],non-owned Affiliates and Associated Physician Practices is amultiple site organization consisting of ambulatory clinics and hospital sitesin [place] and [place]. This disclosure is being madepursuant to the Care Everywhere program and may not contain all information available regarding this patient. 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
--- NOTE | 2024-10-13 02:01 | ED_ITS ---
HPI - General Adult General Chief complaint: Unspecified Stated complaint: std check Time Seen by Provider: 10/13/24 01:29 History of Present Illness HPI narrative: 38-year-old healthy female presenting to the emergency department for concerns of STD exposure. She is asymptomatic and has no complaints. She wants to get checked out as her boyfriend has just checked in as a patient for the same complaint with symptoms. Denies any new sexual partners, denies any symptoms at all. States she just started her period and no chance of . Related Data Allergies Allergy/AdvReac Type Severity Reaction Status Date / Time No Known Allergies Allergy Mild Verified 04/12/24 17:42 Review of Systems Review of Systems: As reviewed above in HPI PMFSH Family History Family History Mother Diabetes mellitus Social History Social History Smoking status: Current every day smoker Living arrangements: with family Occupation/Education: unemployed Gender identity (if verbalized by the patient): Female Exam Narrative: GENERAL: [Well-appearing, well-nourished, and in no acute distress.] HEAD: [Normocephalic, atraumatic.] ENT: Nares clear, no rhinorrhea or epistaxis. Mucous membranes moist. NECK: Supple. CHEST: Nonlabored respirations ABDOMEN: [Soft, nondistended], [nontender], [No rigidity or guarding] SKIN: Warm, dry, no rash. NEURO: [No focal deficits]. Alert and oriented [x3.] Course Vital Signs Vital signs: Vital Signs Temperature 36.6 C 10/13/24 02:24 Pulse Rate 92 10/13/24 02:24 Respiratory Rate 16 10/13/24 02:24 Blood Pressure 104/77 10/13/24 02:24 Pulse Oximetry 100 10/13/24 02:24 Oxygen Delivery Room Air 10/13/24 02:24 Temperature 36.6 C 10/13/24 02:24 Pulse Rate 92 10/13/24 02:24 Respiratory Rate 16 10/13/24 02:24 Blood Pressure 104/77 10/13/24 02:24 Pulse Oximetry 100 10/13/24 02:24 Oxygen Delivery Room Air 10/13/24 02:24 Medical Decision Making MDM Narrative Medical decision making narrative: 38-year-old healthy female presenting to the emergency department for concerns of STD exposure. She is asymptomatic and has no complaints. She wants to get checked out as her boyfriend has just checked in as a patient for the same complaint with symptoms. Denies any new sexual partners, denies any symptoms at all. States she just started her period and no chance of . Patient is asymptomatic, just wants to get evaluated for STD exposure. Urinalysis and urine studies for gonorrhea, Trichomonas and chlamydia sent. STD panel positive for gonorrhea and chlamydia, IM Rocephin and p.o. doxy ordered. Prescription for doxycycline sent. Informed to tell the patient's partner and treat them accordingly. Given return precautions. Medical Records Medical records reviewed: Yes I reviewed the external patient's medical records. Vital Signs Vital Signs: Vital Signs Temperature 36.6 C 10/13/24 02:24 Pulse Rate 92 10/13/24 02:24 Respiratory Rate 16 10/13/24 02:24 Blood Pressure 104/77 10/13/24 02:24 Pulse Oximetry 100 10/13/24 02:24 Oxygen Delivery Room Air 10/13/24 02:24 Temperature 36.6 C 10/13/24 02:24 Pulse Rate 92 10/13/24 02:24 Respiratory Rate 16 10/13/24 02:24 Blood Pressure 104/77 10/13/24 02:24 Pulse Oximetry 100 10/13/24 02:24 Oxygen Delivery Room Air 10/13/24 02:24 Lab Data Lab results reviewed: Yes I reviewed the patient's lab results. Labs: Lab Results 10/13/24 10/13/24 Range/Units 02:05 02:13 Urine Color Yellow (Yellow) Urine Appearance Clear (Clear) Urine pH 6.0 (5.0-9.0) Ur Specific [place] 1.032 (1.001-1.035) Urine Protein 1+ H (Negative) mg/dL Urine Glucose (UA) Negative (Negative) mg/dL Urine Ketones Trace H (Negative) mg/dL Ur Blood (Man) 1+ H (Negative) Urine Nitrate Negative (Negative) Urine Bilirubin Negative (Negative) Urine Urobilinogen 1.0 (<2.0) mg/dL Leukocyte Esterase Rfl 1+ H (Negative) LUCINDA/UL Urine RBC 0-2 (0-2) /hpf Urine WBC 21-50 H (0-3) /hpf Ur Squamous Epith Cells Occasional (Few) /hpf Urine Bacteria Rare /hpf Urine Casts 0-2 POC Urine HCG, Qual Negative (Negative) C. trachomatis (PCR) Detected A (NOT DETECTE) N. gonorrhoeae (PCR) Detected A (NOT DETECTE) T. vaginalis (PCR) Not detected (NOT DETECTE) Discharge Plan Discharge Clinical Impression: Gonorrhea, Chlamydia Patient Disposition: Home Condition: Stable Instructions: Antibiotic Form, Chlamydia (ED), Gonorrhea (ED) Additional Instructions: You tested positive for both gonorrhea and chlamydia. Prescription for antibiotics and your pharmacy. Return with any emergent concerns. Inform your partner about results. Patient Language: Ghanaian Prescriptions: New doxycycline hyclate 100 mg capsule 100 mg PO BID 7 Days Qty: 14 0RF No Action amoxicillin-pot clavulanate 875-125 mg tablet 1 tablet PO Q12H Qty: 20 0RF methylprednisolone [Medrol (Brigido)] 4 mg tablets,dose pack See Rx Instructions .ROUTE .COMPLEX Qty: 21 0RF Rx Instructions: orally per package directions (DME) Wrist Brace Misc See Rx Instructions .Route Qty: 1 0RF Rx Instructions: As directed Follow-up/Referrals: PHYSICIAN,INSPECTOR METAL FABRICATING [Primary Care Provider] - Stand Alone Forms: Work/School Release IP Time of Disposition: 04:40
[2024-10-13 02:16] LABS: BEDSIDEPREGUCG Negative (Negative)
[2024-10-13 02:24] VITALS: BP 104/77; PULSE 92; RESP 16; TEMP 36.6; O2SAT 100
[2024-10-13 02:24] LABS: Add Urine Microscopic? YES; Appearance Urine Clear (Clear); Glucose Urine UA Negative (Negative); Leukocyte Esterase Ur 1+ LEU/UL (Negative); Nitrate Urine Negative (Negative); Non Pathogenic Casts 0-2; Specific Grav Ur 1.032 (1.001-1.035)
[2024-10-13 03:23] LABS: Trichomonas Vag PCR NOT DETECTED (NOT DETECTE)
[2024-10-13] MEDS: cefTRIAXone 0.5 GM, LIDOCAINE 1% LOCAL INJ 2.1 ML IM (05:09)
[2024-10-13] MEDS: DOXYCYCLINE HYCLATE 100 MG TABLET PO (05:10)
== END 2024-10-13 05:24 | disposition home or self-care (01) ==
PROVIDERS: Emergency Provider Student in an Organized Health Care Education/Training Program
DX: A54.9 Gonococcal infection, unspecified (principal); A74.9 Chlamydial infection, unspecified; F17.200 Nicotine dependence, unspecified, uncomplicated
CPT/HCPCS: 81001; 81025; 87086; 87491; 87591; 87661; 96372; 99284; A9270; J0696; J2003